=== PATIENT | female | born 1955 | race Caucasian/White ===

== ENCOUNTER 2019-12-07 13:44 | Observation (INO) | payer BC ==
[2019-12-07] MEDS ORDERED: 0.9 % SODIUM CHLORIDE 1000ML 1,000 ML IV ONE ×2 (13:49→18:43)
[2019-12-07] MEDS ORDERED: ACETAMINOPHEN 1,000 MG/100 ML BTL IVPB ONE ×2 (13:53→18:43)
--- NOTE | 2019-12-07 13:59 | Emergency Department Record ---
History of Present Illness - General Chief complaint: Female Urogenital Problem Stated complaint: UTI Time Seen by Provider: 12/07/19 13:48 Source: Patient Mode of Arrival: Ambulatory Limitations: No limitations - History of Present Illness Initial comments: 64 yo female presents from the [facility]. she states she has not felt well since Wednesday. She initially developed fever, chills, cough, congestion, left sided abdominal pain, back pain, and headache. She was diagnosed on 12/04/19 with a UTI and started Macrobid. The urine culture from 12/04 demonstrated mixed bernabe. She has continued to not feel well since starting the Macrobid. She has continued to have cough, congestion, fever, chills, headaches, left sided pain, and then developed diarrhea yesterday. She is not vomiting but has not appetite. She did have a Flu shot. The nasal drainage and cough has a greenish discharge. Her PCP is Dr Parker. -: Days(s) Radiation: L flank Severity: Moderate Quality: Aching Consistency: Constant Improves with: None, Other Worsens with: None Patient : No Associated Symptoms: Abdominal pain, Dysuria, Fever/chills, Headaches, Loss of appetite, Nausea/vomiting (nausea.), Other (diarrhea) - Related Data Allergies Allergy/AdvReac Type Severity Reaction Status Date / Time oxycodone HCl AdvReac Severe NAUSEA AND Verified 12/07/19 13:50 [From OxyContin] VOMITING Sulfa (Sulfonamide AdvReac Unknown PT UNSURE Verified 12/07/19 13:50 Antibiotics) OF REACTION Review of Systems Constitutional: Reports: Chills, Fever, Malaise, Weakness Eyes: Denies: Eye discharge ENT: Reports: Congestion. Denies: Ear pain, Throat pain Respiratory: Reports: Cough. Denies: Dyspnea, Stridor, Wheezes Cardiovascular: Denies: Chest pain, Edema, Palpitations, Syncope Endocrine: Reports: Fatigue. Denies: Polydipsia, Polyuria Gastrointestinal: Reports: Abdominal pain, Diarrhea, Nausea. Denies: Constipation, Hematemesis, Hematochezia, Melena, Vomiting Genitourinary: Reports: Dysuria, Frequency, Urgency Musculoskeletal: Denies: Arthralgia, Back pain, Joint swelling, Myalgia, Neck pain Skin: Denies: Bruising, Change in color, Rash Neurological: Reports: Headache, Weakness (generalized). Denies: Numbness Psychiatric: Denies: Anxiety Hematological/Lymphatic: Denies: Easy bleeding, Easy bruising Past Medical History - SOCIAL HISTORY Smoking Status: Never smoker - RESPIRATORY Hx Respiratory Disorders: No - CARDIOVASCULAR Hx Cardio Disorders: Yes Hx Abnormal EKG: Yes Hx Edema: Yes (right leg only recent-US done -no clots. better now) Hx Irregular Heartbeat: Yes (Hx erratic heartrate-tests came up "normal") - NEURO Hx Neuro Disorders: Yes Hx Dizziness: Yes (with migraines) Hx of Migraines: Yes (occasional) Hx Weakness: Yes (rt knee) Comment:: sciatica on rt side mainly-affects feet"tingle all the time" - GI Hx GI Disorders: Yes Hx of Polyps: Yes - Hx Genitourinary Disorders: No Comment:: menopause 6 yrs ago - ENDOCRINE Hx Endocrine Disorders: No - MUSCULOSKELETAL Hx Musculoskeletal Disorders: Yes Hx Arthritis: Yes (severe osteoarthritis right knee) Comment:: takes gabapentin for sciatica - PSYCH Hx Psych Problems: No - HEMATOLOGY/ONCOLOGY 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 negative: Conjunctival injection, Scleral icterus - ENT ENT exam: Normal exam, Mucous membranes moist Ear exam: Normal external inspection Nasal Exam: Discharge Mouth exam: Normal external inspection Teeth exam: Normal inspection Throat exam: Normal inspection. negative: Tonsillar erythema, L peritonsillar mass - Neck Neck exam: Full ROM. negative: Lymphadenopathy, Tenderness - Respiratory Respiratory exam: Normal lung sounds bilaterally. negative: Accessory muscle use, Chest wall tenderness, Decreased breath sounds, Respiratory distress, Rhonchi, Stridor, Wheezes - Cardiovascular Cardiovascular Exam: Normal rhythm, Normal heart sounds, Tachycardia - GI/Abdominal GI/Abdominal exam: Soft, Tenderness (Soft abdomen without guarding but tender LLQ and Left flank). negative: Distended, Guarding, Rebound, Rigid - Rectal Rectal exam: Deferred - exam: Deferred - Extremities Extremities exam: negative: Calf tenderness, Pedal edema, Tenderness - Back Back exam: Reports: CVA tenderness (L), Tenderness. Denies: CVA tenderness (R) - Neurological Neurological exam: Alert, Oriented X3 - Psychiatric Psychiatric exam: Normal affect, Normal mood. negative: Agitated, Anxious - Skin Skin exam: Dry, Intact, Normal color, Warm Course - Reevaluation(s) Reevaluation #1: 12/07/19 14:54 The Influenza are negative The CBC was reviewed. The WBC is 23.9 The CMP was reviewed. The Sodium is 126. K is 3.6. AG is 15. CR is 1.0. LFTs are normal. Lipase is normal. 12/07/19 14:59 The CXR demonstrates a RLL diffuse interstitial infiltrate. No effusion. Hyperinflation. Mild T7 wedging. 12/07/19 16:[address] was reviewed There is a RLL pneumonia, there is a baggy extra renal pelvis as well on the left. No other acute process. 12/07/19 16:43 Given the presenting symptoms, pneumonia, WBC count I recommend admission, IV antibiotics, hydration. UA is still pending at this time. The case will be discussed with the admitting service Siomara Carbajal NP Medical Decision Making - Lab Data Result diagrams: 12/07/19 13:45 12/07/19 13:45 Disposition Disposition: Admit Clinical Impression: Hyponatremia Pneumonia Qualifiers: Pneumonia type: due to unspecified organism Laterality: right Lung location: lower lobe of lung Qualified Code(s): J18.9 - Pneumonia, unspecified organism Diarrhea Qualifiers: Diarrhea type: unspecified type Qualified Code(s): R19.7 - Diarrhea, unspecified Disposition: Still a Patient at [facility] Decision to Admit: Admit from ER Decision to Admit Date: 12/07/19 Decision to Admit Time: 16:45 Condition: (2) Stable Time of Disposition: 16:45 Quality - Quality Measures Quality Measures: N/A - Blood Pressure Screening Does Patient Have Any of the Following: No Blood Pressure Classification: Pre-Hypertensive BP Reading Systolic Measurement: 139 Diastolic Measurement: 87 Screening for High Blood Pressure: < Pre-Hypertensive BP, F/U Documented > [[id number]] Pre-Hypertensive Follow-up Interventions: Referral to alternative/primary care provider.
[2019-12-07 14:20] LABS: BILIRUBIN,TOTAL 1.9 mg/dL (0.2-1.0)
[2019-12-07 14:24] LABS: ABSOLUTE NEUTROPHIL COUNT 21.29; HEMATOCRIT 39.2 % (35.0-47.0); HEMOGLOBIN 12.9 gm/dl (11.6-16.0); MEAN CELL VOLUME 91.6 fl (81-97); MEAN CORPUSCULAR HEMOGLOBIN 30.1 pg (27-33); MEAN CORPUSCULAR HGB CONC 32.9 g/dl (32-36); MEAN PLATELET VOLUME 9.5 fl (7.4-10.4); PLATELET COUNT 297 K/uL (130-400); RED BLOOD COUNT 4.28 M/uL (3.80-5.40)
[2019-12-07 14:25] LABS: ALB/GLOB RATIO 0.8 (1.1-1.8); ALBUMIN 3.6 g/dL (4.0-5.0)
[2019-12-07 14:29] LABS: INFLUENZA A NEGATIVE (NEGATIVE); INFLUENZA B NEGATIVE (NEGATIVE)
[2019-12-07 14:35] LABS: WHITE BLOOD COUNT W/O DIFF 23.9 K/uL (4.2-12.2)
--- NOTE | 2019-12-07 14:43 | RADIOLOGY REPORT ---
EXAMINATION: Two View Chest Radiographs EXAM DATE: 12/07/2019 2:24 PM TECHNIQUE: Frontal and lateral views INDICATION: cough, fever, sputum COMPARISON: None ENCOUNTER: Not applicable FINDINGS: The heart, mediastinum, Pulmonary vasculature are normal. There is tortuosity of the aorta. There is mild hyperinflation. Right lower lobe diffuse interstitial infiltrate is present. No other lung cons olidation or pleural effusions are present. Diffuse small thoracic vertebral body osteophytes. Mild a nterior wedging at the T7 vertebral body. 9 mm calcification, left upper abdomen, possibly arterial. IMPRESSION: Right lower lobe infiltrate/pneumonia. Hyperinflation. Atherosclerosis. Spondylosis. Mild T7 vertebral body anterior wedging. Dictated by: Fernanda Gordon MD on 12/07/2019 2:38 PM. .
[2019-12-07 14:47] LABS: PLATELET ESTIMATE NORMAL (NORMAL)
[2019-12-07] MEDS ORDERED: AZITHROMYCIN 500 MG TABLET PO ONE (15:01)
[2019-12-07] MEDS ORDERED: CEFTRIAXONE 1GM/50ML BAG 1 GM/50 ML BAG IVPB ONE (15:01)
--- NOTE | 2019-12-07 16:39 | CT SCAN REPORT ---
EXAMINATION: CT Abdomen and Pelvis with IV Contrast EXAM DATE: 12/07/2019 3:42 PM TECHNIQUE: CT imaging of the abdomen and pelvis was performed with intravenous contrast. Coronal and sagittal images were reconstructed. IV Contrast: The amount and type of contrast are recorded in the medical record. INDICATION: LLQ pain COMPARISON: 12/01/2017 ENCOUNTER: Not applicable CT ABDOMEN AND PELVIS FINDINGS: Lung Bases: There is right lower lobe pneumonia. Hepatobiliary: The liver has a normal size with a smooth surface. The hepatic and portal veins appear patent. There is no biliary dilatation and the gallbladder is unremarkable. Pancreas: The pancreas is normal. Spleen: There is evidence of remote injury to the spleen with a small intrasplenic calcification Adrenals: The adrenal glands are normal. Kidneys, Ureters, & Bladder: There is a the extrarenal pelvis on the left. The mucosa of the left col lecting system enhances slightly more than the right. Gastrointestinal: The stomach and small bowel are normal with no obstruction or inflammation. The lar ge bowel is normal. Reproductive Organs: Unremarkable Lymphatic System: There is no adenopathy within the abdomen or pelvis. Vasculature: Normal caliber abdominal aorta. Peritoneum: No free fluid, free air, or inflammation Abdominal Wall & Musculoskeletal: No suspicious bone lesions. IMPRESSION: 1. Right lower lobe pneumonia 2. Baggy extrarenal pelvis was slightly enhanced mucosal pattern on the left. Correlate clinically. T ract infection 3. No acute bowel pathology. Dictated by: Chaparro Powell MD on 12/07/2019 4:25 PM. .
[2019-12-07 18:16] LABS: URINE APPEARANCE CLEAR; URINE BILIRUBIN NEGATIVE (NEGATIVE); URINE BLOOD SMALL (NEGATIVE); URINE COLOR YELLOW; URINE GLUCOSE (UA) NEGATIVE (NEGATIVE); URINE KETONE NEGATIVE (NEGATIVE); URINE LEUKOCYTE ESTERASE NEGATIVE (NEGATIVE); URINE NITRITE NEGATIVE (NEGATIVE); URINE PROTEIN NEGATIVE (NEGATIVE); URINE UROBILINOGEN 0.2 E.U./dL (0.20 - 1.00)
[2019-12-07 18:22] LABS: URINE EPITHELIAL CELLS 0 - 2 (FEW); URINE WBC NONE SEEN (0-2/hpf)
--- NOTE | 2019-12-07 20:10 | History & Physical ---
History of Present Illness - Date of Service Date of Service for History & Physical: 12/07/19 - History of Present Illness Admitting Diagnosis: Pneumonia, hyponatremia, diarrhea History of Present Illness: 64 year old female patient presented to ED from [facility] [place] for evaluation of headache, cough, and diarrhea today. Patient has not been feeling well since Wednesday, noting fever/chills and urinary frequency at that time. Patient reports being evaluated in [facility] [place] on Wednesday and treated with Macrobid for a UTI. The urine culture from that visit noted mixed bernabe. Patient states she was taking the medication but then had diarrhea and vomiting while continuing to have cough, congestion, and fatigue. Patient also reports intermittent flank pain. Patient's PMH is significant for hypothyroidism and arthritis. PCP: Dr. Parker ED Course: Abdomen/pelvis CT: RLL PNA, baggy extra renal pelvis on the left CXR: RLL diffuse interstitial infiltrate, no effusion WBC 29.3 Na 126, K 3.6, AG 15, Cr 1.0 Started IV hydration, Azithromycin, and Rocephin 12/07/19: Patient A&O x 3, resting comfortably on cot. No respiratory distress noted. Reports feeling mild improvement after receiving IV fluids and abx, but continues to note weakness and a cough. Travel/Exposure Screening - Travel/Exposure Within Last 30 Days Have you traveled within the last 30 days?: No - Travel/Exposure Within Last Year Have you traveled outside the [place] in the last year?: No - Additonal Travel/Exposure Details Have you been exposed to anyone with a communicable illness?: No - Travel Symptoms Symptom Screening: Fever (Subjective), Headache, Joint & Muscle Aches, Weakness, Fatigue, Diarrhea, Lack of Appetite, Chills, Cough Review of Systems Reviewed: No additional complaints except as noted below Constitutional: Reports: Chills, Fever, Malaise, Weakness Eyes: Denies: Eye discharge ENT: Reports: Congestion. Denies: Ear pain, Throat pain Respiratory: Reports: Cough. Denies: Dyspnea, Stridor, Wheezes Cardiovascular: Denies: Chest pain, Edema, Palpitations, Syncope Endocrine: Reports: Fatigue. Denies: Polydipsia, Polyuria Gastrointestinal: Reports: Abdominal pain, Diarrhea, Nausea. Denies: Constipation, Hematemesis, Hematochezia, Melena, Vomiting Genitourinary: Reports: Dysuria, Frequency, Urgency Musculoskeletal: Denies: Arthralgia, Back pain, Joint swelling, Myalgia, Neck pain Skin: Denies: Bruising, Change in color, Rash Neurological: Reports: Headache, Weakness (generalized). Denies: Numbness Psychiatric: Denies: Anxiety Hematological/Lymphatic: Denies: Easy bleeding, Easy bruising Past Medical History - SOCIAL HISTORY Smoking Status: Never smoker - RESPIRATORY Hx Respiratory Disorders: No - CARDIOVASCULAR Hx Cardio Disorders: Yes Hx Abnormal EKG: Yes Hx Edema: Yes (right leg only recent-US done -no clots. better now) Hx Irregular Heartbeat: Yes (Hx erratic heartrate-tests came up "normal") - NEURO Hx Neuro Disorders: Yes Hx Dizziness: Yes (with migraines) Hx of Migraines: Yes (occasional) Hx Weakness: Yes (rt knee) Comment:: sciatica on rt side mainly-affects feet"tingle all the time" - GI Hx GI Disorders: Yes Hx of Polyps: Yes - Hx Genitourinary Disorders: No Comment:: menopause 6 yrs ago - ENDOCRINE Hx Endocrine Disorders: No - MUSCULOSKELETAL Hx Musculoskeletal Disorders: Yes Hx Arthritis: Yes (severe osteoarthritis right knee) Comment:: takes gabapentin for sciatica - PSYCH Hx Psych Problems: No - HEMATOLOGY/ONCOLOGY 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) Family Medical History Hx Alcohol Use: Father Hx Anxiety: Father Hx Cancer: Grandparents Hx Dementia: Mother Hx HTN: Grandparents Hx Resp Disorders: Father H&P Meds/Allergies - Allergies Allergies: Allergies Allergy/AdvReac Type Severity Reaction Status Date / Time oxycodone HCl AdvReac Severe NAUSEA AND Verified 12/07/19 13:50 [From OxyContin] VOMITING Sulfa (Sulfonamide AdvReac Unknown PT UNSURE Verified 12/07/19 13:50 Antibiotics) OF REACTION - Active Medications Active Medications: Current Medications Azithromycin (Zithromax) 500 mg PO DAILY [facility] Sodium Chloride () 1,000 mls @ 125 mls/hr IV .Q8H ONE Stop: 12/08/19 02:42 CEFTRIAXONE 1GM/50ML BAG (Ceftriaxone 1 Gm-D5w Bag) 1 gm in 50 mls @ 100 mls/hr IVPB Q24H THERESA Physical Exam - Vital Signs Vital Signs: Vital Signs - Last 24 Hrs Temp Pulse Pulse Resp BP BP Pulse Ox 12/07/19 19:08 80 16 12/07/19 18:00 98.0 F 80 16 132/81 95 12/07/19 16:42 98.3 F 75 20 123/82 96 12/07/19 16:30 98.2 F 75 16 120/75 95 12/07/19 15:49 78 18 116/94 94 L 12/07/19 14:49 99.4 F 85 18 95 12/07/19 13:46 101.3 F H 128 H 20 139/87 93 L - General General Appearance: Alert, Oriented x3, Cooperative, No acute distress Limitations: No limitations - Head Head exam: Atraumatic, Normal inspection - Eye Eye exam: Normal appearance, PERRL. negative: Conjunctival injection, Scleral icterus - ENT ENT exam: Normal exam, Mucous membranes moist Ear exam: Normal external inspection Nasal Exam: Discharge Mouth exam: Normal external inspection Teeth exam: Normal inspection Throat exam: Normal inspection. negative: Tonsillar erythema, L peritonsillar mass - Neck Neck exam: Full ROM. negative: Lymphadenopathy, Tenderness - Respiratory Respiratory exam: Normal lung sounds bilaterally. negative: Accessory muscle use, Chest wall tenderness, Decreased breath sounds, Respiratory distress, Rhonchi, Stridor, Wheezes - Cardiovascular Cardiovascular Exam: Normal rhythm, Normal heart sounds, Tachycardia Peripheral Pulses: 2+: Radial (R), Radial (L), Dorsalis Pedis (R), Dorsalis Pedi s (L) - GI/Abdominal GI/Abdominal exam: Soft, Tenderness (Soft abdomen without guarding but tender LLQ and Left flank). negative: Distended, Guarding, Rebound, Rigid - Rectal Rectal exam: Deferred - exam: Deferred - Extremities Extremities exam: negative: Calf tenderness, Pedal edema, Tenderness - Back Back exam: Reports: CVA tenderness (L), Tenderness. Denies: CVA tenderness (R) - Neurological Neurological exam: Alert, Oriented X3 - Psychiatric Psychiatric exam: Normal affect, Normal mood. negative: Agitated, Anxious - Skin Skin exam: Dry, Intact, Normal color, Warm Results - Labs Result Diagrams: 12/07/19 13:45 12/07/19 13:45 Labs Last 24 Hours: Laboratory Results - last 24 hr 12/07/19 12/07/19 12/07/19 13:45 13:45 14:02 WBC 23.9 H* RBC 4.28 Hgb 12.9 Hct 39.2 MCV 91.6 MCH 30.1 MCHC 32.9 RDW 13.0 Plt Count 297 MPV 9.5 Neutrophils % 89.0 H Eosinophils % Not Reportable Basophils % Not Reportable Absolute Neutrophils 21.29 Lymphocytes 9.0 L Monocytes 2.0 Platelet Estimate Normal RBC Morphology Normal Sodium 126 L Potassium 3.6 Chloride 87 L Carbon Dioxide 24.0 Anion Gap 15.0 BUN 17 Creatinine 1.0 H Estimated GFR 60 Random Glucose 124 H Calcium 9.3 Total Bilirubin 1.90 H AST 21 ALT 15 Alkaline Phosphatase 122 H Total Protein 8.0 Albumin 3.6 L Globulin 4.4 Albumin/Globulin Ratio 0.8 L Lipase 17 Urine Color Urine Appearance Urine pH Ur Specific [place] Urine Protein Urine Glucose (UA) Urine Ketones Urine Blood Urine Nitrite Urine Bilirubin Urine Urobilinogen Ur Leukocyte Esterase Urine RBC Urine WBC Ur Epithelial Cells Influenza Type A Ag Negative Influenza Type B Ag Negative 12/07/19 18:13 WBC RBC Hgb Hct MCV MCH MCHC RDW Plt Count MPV Neutrophils % Eosinophils % Basophils % Absolute Neutrophils Lymphocytes Monocytes Platelet Estimate RBC Morphology Sodium Potassium Chloride Carbon Dioxide Anion Gap BUN Creatinine Estimated GFR Random Glucose Calcium Total Bilirubin AST ALT Alkaline Phosphatase Total Protein Albumin Globulin Albumin/Globulin Ratio Lipase Urine Color Yellow Urine Appearance Clear Urine pH 5.5 Ur Specific [place] <= 1.005 Urine Protein Negative Urine Glucose (UA) Negative Urine Ketones Negative Urine Blood Small H Urine Nitrite Negative Urine Bilirubin Negative Urine Urobilinogen 0.2 Ur Leukocyte Esterase Negative Urine RBC 3 - 6 Urine WBC None seen Ur Epithelial Cells 0 - 2 Influenza Type A Ag Influenza Type B Ag - Imaging and Cardiology Chest x-ray Status: Report reviewed CT scan - abdomen Status: Report reviewed VTE H&P Assessment - Risk for VTE Risk for VTE: Yes Risk Level: Moderate Risk Assessment Date: 12/07/19 Risk Assessment Time: 17:00 VTE Orders Placed or Will Be Placed: Yes Plan - Inpatient Certification Inpatient Certification: Admit to inpatient care: Based on my medical assessment, after consideration of patient's risk factors (age, co-morbidities and patient presenting symptoms and acuity), I expect that this patient will remain in the hospital greater than or equal to two midnights and that the services needed warrant inpatient care because: Patient Risk Factors: [age, pneumonia] Estimated length of stay: The patient may reasonably be expected to be discharged or transferred to a hospital within 24-48 hours after admission to [facility]. Services needed: [IV abx, respiratory therapy, breathing treatments, monitoring tech] Post hospital care (if known): [] I certify that my determination is in accordance with my understanding of Medicare requirements for reasonable and necessary inpatient services. 12/07/19 20:42 - Detailed Diagnosis and Plan (1) Pneumonia Current Visit: Yes Status: Acute Qualifiers: Pneumonia type: due to unspecified organism Laterality: right Lung location: lower lobe of lung Qualified Code(s): J18.9 - Pneumonia, unspecified organism Base Code: J18.9 - PNEUMONIA, UNSPECIFIED ORGANISM Comment: 12/07/19: - CXR and CT confirm: RLL pneumonia - WBC 29.3 - Azithromycin 500mg daily and Ceftriaxone 1gm q24h - Supplemental oxygen to keep pulse ox >92% (2) Hyponatremia Current Visit: Yes Status: Acute Base Code: E87.1 - HYPO-OSMOLALITY AND HYPONATREMIA Comment: 12/07/19 - Na 126, K 3.6, Cr 1.0 - 0.9%NS @ 125ml/hr (3) DVT prophylaxis Current Visit: Yes Status: Acute Base Code: Z29.9 - ENCOUNTER FOR PROPHYLACTIC MEASURES, UNSPECIFIED Comment: 12/07/19 - Moderate risk due to age, illness, and hospitalization - Lovenox 40mg SQ daily (4) Full code status Current Visit: Yes Status: Acute Base Code: Z78.9 - OTHER SPECIFIED HEALTH STATUS Comment: 12/07/19 - Full code this admission
[2019-12-08] MEDS ORDERED: LEVOTHYROXINE SODIUM 50 MCG TABLET PO SCH (07:00)
[2019-12-08 07:16] LABS: ABSOLUTE NEUTROPHIL COUNT 13.32; HEMATOCRIT 35.3 % (35.0-47.0); HEMOGLOBIN 11.1 gm/dl (11.6-16.0); MEAN CELL VOLUME 92.2 fl (81-97); MEAN CORPUSCULAR HGB CONC 31.4 g/dl (32-36); MEAN PLATELET VOLUME 9.4 fl (7.4-10.4); PLATELET COUNT 264 K/uL (130-400); RED BLOOD COUNT 3.83 M/uL (3.80-5.40); RED CELL DISTRIBUTION WIDTH 13.2 % (11.5-14.5); WHITE BLOOD COUNT W/O DIFF 15.7 K/uL (4.2-12.2)
[2019-12-08 07:20] LABS: MEAN CORPUSCULAR HEMOGLOBIN 28.9 pg (27-33)
[2019-12-08 07:40] LABS: ALB/GLOB RATIO 0.8 (1.1-1.8); ALBUMIN 2.8 g/dL (4.0-5.0); ALKALINE PHOSPHATASE 124 U/L (35-104); ALT/SGPT 13 U/L (<33); AST/SGOT 17 U/L (10.0-35.0); BLOOD UREA NITROGEN 17 mg/dL (8-23); CREATININE 0.7 mg/dL (0.5-0.9); EST GLOMERULAR FILTRATION RATE > 60 mL/min; GLUCOSE,RANDOM 110 mg/dL (74-109); TOTAL PROTEIN 6.4 g/dL (6.6-8.7)
[2019-12-08 07:49] LABS: PLATELET ESTIMATE NORMAL (NORMAL)
[2019-12-08] MEDS ORDERED: AZITHROMYCIN 500 MG TABLET PO SCH (10:00)
[2019-12-08] MEDS ORDERED: ENOXAPARIN 40 MG/0.4 ML SYR SQ SCH (10:00)
[2019-12-08] MEDS ORDERED: 0.9 % SODIUM CHLORIDE 1000ML 1,000 ML IV PRN (12:53)
[2019-12-08] MEDS ORDERED: CEFTRIAXONE 1GM/50ML BAG 1 GM/50 ML BAG IVPB SCH (15:00)
--- NOTE | 2019-12-08 17:28 | Discharge Summary ---
Providers Discharge Summary Date: 12/08/19 Date of admission: 12/07/19 17:41 Expected Date of Discharge: 12/08/19 Attending physician: Brad Velazquez Primary care physician: Cynthia Doss M.D. Physical Exam - Vital Signs Vital Signs: Vital Signs - Last 24 Hrs Temp Pulse Resp BP Pulse Ox 12/08/19 09:00 98.1 F 86 16 102/58 95 12/08/19 05:00 98.0 F 69 18 106/62 95 12/07/19 20:00 97.9 F 82 18 112/67 96 12/07/19 19:08 80 16 12/07/19 18:00 98.0 F 80 16 132/81 95 - General General Appearance: Alert, Oriented x3, Cooperative, No acute distress Limitations: No limitations - Head Head exam: Atraumatic, Normal inspection - Eye Eye exam: Normal appearance, PERRL. negative: Conjunctival injection, Scleral icterus - ENT ENT exam: Normal exam, Mucous membranes moist Ear exam: Normal external inspection Nasal Exam: Discharge Mouth exam: Normal external inspection Teeth exam: Normal inspection Throat exam: Normal inspection. negative: Tonsillar erythema, L peritonsillar mass - Neck Neck exam: Full ROM. negative: Lymphadenopathy, Tenderness - Respiratory Respiratory exam: Normal lung sounds bilaterally. negative: Accessory muscle use, Chest wall tenderness, Decreased breath sounds, Respiratory distress, Rhonchi, Stridor, Wheezes - Cardiovascular Cardiovascular Exam: Regular rate, Normal rhythm, Normal heart sounds Peripheral Pulses: 2+: Radial (R), Radial (L), Dorsalis Pedis (R), Dorsalis Pedis (L) - GI/Abdominal GI/Abdominal exam: Soft. negative: Distended, Guarding, Rebound, Rigid - Rectal Rectal exam: Deferred - exam: Deferred - Extremities Extremities exam: negative: Calf tenderness, Pedal edema, Tenderness - Back Back exam: Reports: CVA tenderness (L), Tenderness. Denies: CVA tenderness (R) - Neurological Neurological exam: Alert, Normal gait, Oriented X3 - Psychiatric Psychiatric exam: Normal affect, Normal mood. negative: Agitated, Anxious - Skin Skin exam: Dry, Intact, Normal color, Warm Hospitalization - Hospitalization Admission Diagnosis: Pneumonia, hyponatremia, diarrhea - Problem List/Discharge Diagnosis (1) Pneumonia Current Visit: Yes Status: Acute Discharge Diagnosis: Pneumonia type: due to unspecified organism Laterality: right Lung location: lower lobe of lung Qualified Code(s): J18.9 - Pneumonia, unspecified organism Base Code: J18.9 - PNEUMONIA, UNSPECIFIED ORGANISM Comment: 12/08/19: - CXR and CT confirm: RLL pneumonia - WBC 29.3 upon admission, improved to 15.7 - Azithromycin 500mg daily x 5 days and Ceftriaxone 1gm q24h, switching to Cefdinir 300mg BID x 10 days - Increase fluids and rest - Tylenol prn (2) Hyponatremia Current Visit: Yes Status: Acute Base Code: E87.1 - HYPO-OSMOLALITY AND HYPONATREMIA Comment: 12/08/19 - Resolved with fluids - Na 126, K 3.6, Cr 1.0 upon admission, improved to Na 136 - 0.9%NS @ 125ml/hr (3) DVT prophylaxis Current Visit: Yes Status: Acute Base Code: Z29.9 - ENCOUNTER FOR PROPHYLACTIC MEASURES, UNSPECIFIED Comment: 12/08/19 - Moderate risk due to age, illness, and hospitalization - Lovenox 40mg SQ daily while hospitalized (4) Full code status Current Visit: Yes Status: Acute Base Code: Z78.9 - OTHER SPECIFIED HEALTH STATUS Comment: 12/08/19 - Full code this admission - Hospitalization Course Disposition: Home, Self-Care Hospital Course: 64 year old female patient presented to ED from [facility] for evaluation of headache, cough, and diarrhea today. Patient has not been feeling well since Wednesday, noting fever/chills and urinary frequency at that time. Patient reports being evaluated in [facility] on Wednesday and treated with Macrobid for a UTI. The urine culture from that visit noted mixed bernabe. Patient states she was taking the medication but then had diarrhea and vomiting while continuing to have cough, congestion, and fatigue. Patient also reports intermittent flank pain. Patient's PMH is significant for hypothyroidism and arthritis. PCP: Dr. Parker ED Course: Abdomen/pelvis CT: RLL PNA, baggy extra renal pelvis on the left CXR: RLL diffuse interstitial infiltrate, no effusion WBC 29.3 Na 126, K 3.6, AG 15, Cr 1.0 Started IV hydration, Azithromycin, and Rocephin 12/07/19: Patient A&O x 3, resting comfortably on cot. No respiratory distress noted. Reports feeling mild improvement after receiving IV fluids and abx, but continues to note weakness and a cough. 12/08/19: Patient A&O x 3, resting comfortably in bed. No respiratory distress noted, patient reports improvement in general fatigue, headache, and breathing status. Will dc home with Azithromycin and Cefdinir for pneumonia. 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 Abnormal Labs: Abnormal Lab Results 12/07/19 12/07/19 12/07/19 Range/Units 13:45 13:45 18:13 WBC 23.9 H* (4.2-12.2) K/uL Hgb (11.6-16.0) gm/dl MCHC (32-36) g/dl Neutrophils % 89.0 H (47-80) % Lymphocytes 9.0 L (16-45) % Sodium 126 L (136-145) mmol/L Chloride 87 L (98-107) mmol/L Creatinine 1.0 H (0.5-0.9) mg/dL Random Glucose 124 H (74-109) mg/dL Calcium (8.8-10.2) mg/dL Total Bilirubin 1.90 H (0.2-1.0) mg/dL Alkaline Phosphatase 122 H (35-104) U/L Total Protein (6.6-8.7) g/dL Albumin 3.6 L (4.0-5.0) g/dL Albumin/Globulin Ratio 0.8 L (1.1-1.8) Urine Blood Small H (NEGATIVE) 12/08/19 12/08/19 Range/Units 06:23 06:23 WBC 15.7 H (4.2-12.2) K/uL Hgb 11.1 L (11.6-16.0) gm/dl MCHC 31.4 L (32-36) g/dl Neutrophils % 85.0 H (47-80) % Lymphocytes 10.0 L (16-45) % Sodium (136-145) mmol/L Chloride (98-107) mmol/L Creatinine (0.5-0.9) mg/dL Random Glucose 110 H (74-109) mg/dL Calcium 8.3 L (8.8-10.2) mg/dL Total Bilirubin (0.2-1.0) mg/dL Alkaline Phosphatase 124 H (35-104) U/L Total Protein 6.4 L (6.6-8.7) g/dL Albumin 2.8 L (4.0-5.0) g/dL Albumin/Globulin Ratio 0.8 L (1.1-1.8) Urine Blood (NEGATIVE) Condition at Discharge: (2) Stable Discharge Medications - Discharge Medications Prescriptions: Cefdinir [Omnicef] 300 mg PO BID #16 cap Azithromycin [Zithromax] 500 mg PO DAILY #3 tab Home Medications: Ambulatory Orders Celecoxib TID 12/04/19 [Last Taken Unknown] Gabapentin DAILY 12/04/19 [Last Taken 12/06/19] Hydrocodone/Acetaminophen [[place] 7.5-325 Tablet] 1 each PO PRN tab 12/04/19 [Last Taken Unknown] Levothyroxine Sodium [Synthroid] 12/04/19 [Last Taken 12/07/19] Azithromycin [Zithromax] 500 mg PO DAILY #3 tab 12/08/19 [Last Taken Unknown] Cefdinir [Omnicef] 300 mg PO BID #16 cap 12/08/19 [Last Taken Unknown] Discharge Plan - Discharge Instructions Activity at Discharge: Increase Activity as Tolerated Diet at Discharge: Advance to Usual Diet Additional Instructions: Azithromycin: Take 1 tab daily, your next dose is due 12/09/19 Cefdinir: Take 1 tab twice a day, your next dose is due 12/09/19 Amy from [facility] will contact you at the beginning of next week to give you an appointment date and time within the next 2 weeks with Kym Chu NP. Quality Measures - Quality Measures Quality Measures: Documentation of Current Medications in Medical Record, Screening for High Blood Pressure and F/U Documented - Current Medications Quality Measure: Measure #130: Documentation of Current Medications Documentation of Current Medications: <Current Medications Documented/Reviewed> [G8427] - Blood Pressure Screening Quality Measure: Screening for High Blood Pressure and Follow-Up Documented Does Patient Have Any of the Following: No Blood Pressure Classification: Pre-Hypertensive BP Reading Systolic Measurement: 139 Diastolic Measurement: 87 Screening for High Blood Pressure: < Pre-Hypertensive BP, F/U Documented > [G8950] Pre-Hypertensive Follow-up Interventions: Referral to alternative/primary care provider. - Elder Abuse Suspicion Index EASI Reference Information: Kevin SARABIA, Jean C, Mamta Recinos, Yue Saxena.Development and validation of a tool to assist physicians identification of elder abuse: The Elder Abuse Suspicion Index (EASI ). Journal of Elder Abuse and Neglect, 2008; 20 (3): 276-300.
== END 2019-12-08 18:15 | disposition home or self-care (01) ==
LOC: ER 13:44 → INTOOBSV 17:41 → MEDSURG 17:41
PROVIDERS: ADMIT Internal Medicine; ATTEND Internal Medicine
DX: J18.9 Pneumonia, unspecified organism (principal); R19.7 Diarrhea, unspecified; E87.1 Hypo-osmolality and hyponatremia; E86.0 Dehydration; R51 Headache; R50.9 Fever, unspecified; R05 Cough; E03.9 Hypothyroidism, unspecified; M19.90 Unspecified osteoarthritis, unspecified site
CPT/HCPCS: 71046; 74177; 80053; 81001; 83690; 85027; 87400; 96361; 96365; 96366; 99217; 99220; 99285; J0696; J1650; J7030